=== PATIENT | male | born 1970 | race African-American/Black ===

== ENCOUNTER 2018-03-12 06:56 | Inpatient (IN) | payer SELFPAY ==
[~2018-03-12] VITALS: Ht 180.3 cm; Wt 68.0 kg
[2018-03-12] MEDS ORDERED: FAMOTIDINE 20MG/2ML VIAL IV STA (08:00)
[2018-03-12] MEDS ORDERED: KETOROLAC 30MG/ML VIAL IV STA (08:00)
[2018-03-12] MEDS ORDERED: ONDANSETRON HCL 4MG/2ML VIAL IV STA (08:00)
[2018-03-12] MEDS ORDERED: MAGNESIUM/ALUMINUM HYDROXIDE/SIMETHICONE 30ML UDC PO STA (08:00)
[2018-03-12] MEDS ORDERED: SODIUM CHLORIDE 0.9% 1,000 ML IV ONE ×2 (08:00→12:45)
[2018-03-12 08:14] LABS: BASOPHILS % 0.5 % (0.0-2.0); EOSINOPHILS % 1.4 % (0.0-5.0); HEMATOCRIT. 39.4 % (42.0-52.0); HEMOGLOBIN. 13.4 g/dL (14.0-18.0); LYMPHOCYTES % 11.9 % (20.0-50.0); MEAN CORPUSCULAR HEMOGLOBIN 32.3 pg (28.0-32.0); MEAN CORPUSCULAR VOLUME 95.1 fL (80.0-94.0); MONOCYTES % 8.3 % (2.0-8.0); NEUTROPHILS % 77.9 % (40.0-76.0); PLATELET 386 x1000/uL (130-400); RED BLOOD CELL COUNT 4.14 mill/uL (4.7-6.1); RED CELL DISTRIBUTION WIDTH 14.4 % (11.6-14.6)
[2018-03-12 08:15] LABS: CHLORIDE 95 mEq/L (98-107)
[2018-03-12 08:17] LABS: PROTHROMBIN TIME 10.5 sec (9.4-11.6)
[2018-03-12] MEDS ORDERED: FENTANYL CITRATE/PF 50MCG/ML 2ML VIAL IV NR (09:30)
[2018-03-12 11:06] LABS: COLOR URINE AMBER (YELLOW); KETONES URINE 2+ (NEGATIVE); LEUKOCYTE ESTERASE URINE NEGATIVE (NEGATIVE); NITRITE URINE NEGATIVE (NEGATIVE); OCCULT BLOOD URINE NEGATIVE (NEGATIVE); PH URINE 5.5 (4.5-8.0); PROTEIN URINE 1+ (NEGATIVE); SPECIFIC GRAVITY URINE 1.043 (1.005-1.030); UROBILINOGEN URINE 0.2 E.U./dL (0.2-1.0)
[2018-03-12 11:12] LABS: CLARITY URINE SL HAZY (CLEAR)
[2018-03-12] MEDS ORDERED: LORAZEPAM 2MG/ML CPJ IV PRN (12:00)
[2018-03-12] MEDS ORDERED: IPRATROPIUM/ALBUTEROL 0.5-3(2.5)MG/3ML NEB INH PRN (12:00)
[2018-03-12] MEDS ORDERED: CLONIDINE 0.1MG TABLET PO PRN (12:00)
[2018-03-12] MEDS ORDERED: MORPHINE SULFATE 4 MG/ML CPJ (NOT FOR IM USE) IV ONE (12:45)
[2018-03-12 12:51] LABS: TOTAL IRON BINDING CAPACITY 312 ug/dL (250-450)
[2018-03-12] MEDS: ONDANSETRON HCL 4MG/2ML VIAL IV PRN ×3 (13:17→23:00)
[2018-03-12 13:18] LABS: VITAMIN B12 SERUM 1834 pg/mL (211-911)
[2018-03-12 13:23] LABS: FOLIC ACID (FOLATE) SERUM > 20.00 ng/mL (>5.38)
[2018-03-12 14:07] LABS: ETHANOL BLOOD < 10 mg/dL
[2018-03-12] MEDS: MORPHINE SULFATE 4 MG/ML CPJ (NOT FOR IM USE) IV PRN ×2 (17:53→23:00)
[2018-03-12] MEDS: PANTOPRAZOLE SODIUM 40 MG/VIAL IV SCH (18:10)
[2018-03-12] MEDS ORDERED: FOLIC ACID 1 MG, THIAMINE HCL 100 MG, MVI, ADULT NO.1 10 ML in DEXTROSE 5% WATER 1,000 ML IV ONE ×4 (18:30)
[2018-03-12 22:45] VITALS: BP 149/87
[2018-03-12] MEDS: CHLORDIAZEPOXIDE 25MG CAPSULE PO SCH (23:00)
[2018-03-13] VITALS: BP 165/88
[2018-03-13] MEDS ORDERED: KCL 20MEQ/100ML PREMIX 100 ML IV NR (03:00)
[2018-03-13] MEDS: MORPHINE SULFATE 4 MG/ML CPJ (NOT FOR IM USE) IV PRN ×5 (03:51→20:08)
[2018-03-13 04:00] VITALS: BP 151/77
[2018-03-13] MEDS: CHLORDIAZEPOXIDE 25MG CAPSULE PO SCH ×3 (05:17→21:43)
[2018-03-13] MEDS ORDERED: POTASSIUM CHLORIDE INJ 30 MEQ in DEXT 5%/0.9% NACL 1,000 ML IV NR (06:00)
[2018-03-13 08:00] VITALS: BP 177/86
[2018-03-13] MEDS: PANTOPRAZOLE SODIUM 40 MG/VIAL IV SCH ×2 (08:23→16:28)
[2018-03-13 10:27] LABS: BASOPHILS % 0.3 % (0.0-2.0); EOSINOPHILS % 1.9 % (0.0-5.0); HEMATOCRIT. 36.8 % (42.0-52.0); HEMOGLOBIN. 12.4 g/dL (14.0-18.0); LYMPHOCYTES % 10.7 % (20.0-50.0); MEAN CORPUSCULAR HEMOGLOBIN 32.2 pg (28.0-32.0); MEAN CORPUSCULAR VOLUME 95.4 fL (80.0-94.0); MEAN PLATELET VOLUME 6.8 fl (7.4-10.4); MONOCYTES % 8.6 % (2.0-8.0); NEUTROPHILS % 78.5 % (40.0-76.0); PLATELET 362 x1000/uL (130-400); RED BLOOD CELL COUNT 3.86 mill/uL (4.7-6.1); RED CELL DISTRIBUTION WIDTH 14.2 % (11.6-14.6)
[2018-03-13 10:58] LABS: CHLORIDE 97 mEq/L (98-107)
[2018-03-13 11:11] LABS: AMYLASE 163 IU/L (25-115)
[2018-03-13 12:00] VITALS: BP 163/94
[2018-03-13 12:12] LABS: *AMPHETAMINES SCREEN URINE NEGATIVE (NEGATIVE); *BARBITURATES SCREEN URINE NEGATIVE (NEGATIVE); *BENZODIAZEPINES SCREEN URINE NEGATIVE (NEGATIVE); *COCAINE SCREEN URINE NEGATIVE (NEGATIVE)
[2018-03-13 12:13] LABS: CANNABINOID URINE SCREEN NEGATIVE (NEGATIVE); METHADONE URINE SCREEN NEGATIVE (NEGATIVE); OPIATES URINE SCREEN PRESUMTIVE POSITIVE (NEGATIVE); PHENCYCLIDINE URINE SCREEN NEGATIVE (NEGATIVE)
[2018-03-13 15:20] VITALS: BP 165/93
[2018-03-13] MEDS: ONDANSETRON HCL 4MG/2ML VIAL IV PRN (15:29)
[2018-03-13 20:00] VITALS: BP 163/96
[2018-03-14] VITALS: BP 149/83
[2018-03-14] MEDS: MORPHINE SULFATE 4 MG/ML CPJ (NOT FOR IM USE) IV PRN ×3 (00:34→09:18)
[2018-03-14 04:00] VITALS: BP 168/89
[2018-03-14] MEDS: CHLORDIAZEPOXIDE 25MG CAPSULE PO SCH ×2 (06:01→14:00)
[2018-03-14 06:43] LABS: BASOPHILS % 0.3 % (0.0-2.0); EOSINOPHILS % 2.2 % (0.0-5.0); HEMATOCRIT. 40.8 % (42.0-52.0); HEMOGLOBIN. 13.8 g/dL (14.0-18.0); LYMPHOCYTES % 12.8 % (20.0-50.0); MEAN CORPUSCULAR HEMOGLOBIN 32.7 pg (28.0-32.0); MEAN CORPUSCULAR VOLUME 96.7 fL (80.0-94.0); MEAN PLATELET VOLUME 7.4 fl (7.4-10.4); MONOCYTES % 10.8 % (2.0-8.0); NEUTROPHILS % 73.9 % (40.0-76.0); PLATELET 351 x1000/uL (130-400); RED BLOOD CELL COUNT 4.22 mill/uL (4.7-6.1); RED CELL DISTRIBUTION WIDTH 14.4 % (11.6-14.6)
[2018-03-14 07:35] LABS: CHLORIDE 101 mEq/L (98-107)
[2018-03-14 07:40] LABS: AMYLASE 127 IU/L (25-115)
[2018-03-14 08:00] VITALS: BP 163/86
[2018-03-14] MEDS: PANTOPRAZOLE SODIUM 40 MG/VIAL IV SCH (09:18)
[2018-03-14] MEDS ORDERED: AMLODIPINE 10MG TABLET PO SCH (11:30)
[2018-03-14] MEDS ORDERED: HYDROMORPHONE HCL/PF 2MG/ML CPJ IV PRN (11:45)
[2018-03-14 12:00] VITALS: BP 162/93
[2018-03-14 14:14] VITALS: BP 135/84
== END 2018-03-14 15:40 | disposition home or self-care (01) | DRG 282 ==
LOC: ER 06:56 → 6EST 11:49 → ENRESERV 20:23 → 6EST 23:49
PROVIDERS: ADMIT Internal Medicine; ATTEND Internal Medicine
DX: K85.20 Alcohol induced acute pancreatitis without necrosis or infection (principal); K92.0 Hematemesis; E87.8 Other disorders of electrolyte and fluid balance, not elsewhere classified; D50.9 Iron deficiency anemia, unspecified; E87.6 Hypokalemia; F10.10 Alcohol abuse, uncomplicated; F17.210 Nicotine dependence, cigarettes, uncomplicated; D53.9 Nutritional anemia, unspecified; K86.0 Alcohol-induced chronic pancreatitis
CPT/HCPCS: 36415; 71045; 74176; 74181; 76705; 80048; 80053; 80076; 80305; 81003; 82150; 82607; 82728; 82746; 83036; 83540; 83550; 83690; 83735; 84484; 85025; 85610; 86301; 93005; 93970; 96361; 96365; 96375; 99285; C9113; G0482; J1885; J2270; J2405; J3010; J3411; J3480; J3490; J7030; J7042; J7070

== ENCOUNTER 2018-03-21 11:05 | Emergency (ER) | payer SELFPAY | END 2018-03-21 11:18 | disposition left against medical advice (07) | LOC: ER 11:05 | DX: Z00.00 Encounter for general adult medical examination without abnormal findings (principal) | CPT/HCPCS: 99281 ==